=== PATIENT | female | born 1990 | race Caucasian/White ===

== ENCOUNTER 2017-12-23 09:51 | Emergency (ER) | payer MEDICAID, BC | END 2017-12-23 13:43 | disposition home or self-care (01) | LOC: FTE 09:51 | DX: S99.912A Unspecified injury of left ankle, initial encounter (principal); W01.0XXA Fall on same level from slipping, tripping and stumbling without subsequent striking against object, initial encounter; Y92.9 Unspecified place or not applicable | CPT/HCPCS: 73610; 73630-LT; 99283-25 ==

== ENCOUNTER 2018-01-04 09:53 | Emergency (ER) | payer MEDICAID ==
[2018-01-04] MEDS: IPRATROPIUM (NEB) 0.5 MG/2.5 ML AMP NEB (12:18)
[2018-01-04] MEDS: ALBUTEROL 0.083% (NEB) 2.5 MG/3 ML AMP NEB (12:18)
== END 2018-01-04 12:39 | disposition home or self-care (01) ==
LOC: E/R 09:53 → FTE 12:39
DX: J20.9 Acute bronchitis, unspecified (principal)
CPT/HCPCS: 71045; 94664; 99284-25

== ENCOUNTER 2018-04-10 22:09 | Emergency (ER) | payer SELFPAY, MEDICAID | END 2018-04-11 01:00 | disposition home or self-care (01) | LOC: FTE 22:09 | DX: J02.9 Acute pharyngitis, unspecified (principal) | CPT/HCPCS: 99283 ==